=== PATIENT | female | born 1940 | race Caucasian/White ===

== ENCOUNTER 2022-11-12 09:45 | Emergency (ER) | payer MEDICARE, MEDICAID ==
[~2022-11-12] VITALS: Ht 165.1 cm; Wt 61.7 kg
[2022-11-12] MEDS ORDERED: KEFLEX 500 MG E2 CAP PO (09:55)
[2022-11-12 10:23] LABS: BILIRUBIN Negative (Negative); BLOOD Negative (Negative); CLARITY Clear (Clear); COLOR Yellow (Yellow); GLUCOSE Negative (Negative); KETONE Negative (Negative); LEUKO ESTERASE 1+ (Negative); NITRITE Negative (Negative); PH 5.5 (4.5-8.0); UROBILINOGEN 0.2 E.U./dl (0.0-1.0)
[2022-11-12 10:37] LABS: MUCOUS TRACE
[2022-11-12 10:51] LABS: BASO % 0.4 % (0.0-1.0); EOS # 0.1 10*3/uL (0.0-0.4); EOS % 1.4 % (1.0-4.0); HEMATOCRIT 41.5 % (37.0-47.0); LYMPH # 1.8 10*3/uL (1.3-4.4); LYMPH % 36.4 % (27.0-41.0); MEAN CELL VOLUME 89.4 fl (81.0-99.0); MEAN CORPUSCULAR HGB 27.8 pg (27.0-31.0); MEAN CORPUSCULAR HGB CONC 31.1 g/dl (33.0-37.0); MEAN PLATELET VOLUME 9.4 fl (9.6-12.3); MONO # 0.4 10*3/uL (0.1-1.0); MONO % 8.9 % (3.0-9.0); NEUT # 2.5 10*3/uL (2.3-7.9); NEUT % 52.7 % (47.0-73.0); PLATELET COUNT AUTOMATED 176 10*3/uL (130-400); RED BLOOD COUNT 4.64 10*6/uL (4.10-5.10); RED CELL DISTRI WIDTH 12.9 % (0-14.5); WHITE BLOOD COUNT 4.8 10*3/uL (4.8-10.8)
[2022-11-12 11:04] LABS: ACT PARTIAL THROMBO TIME 26.2 SECONDS (20.0-32.1)
[2022-11-12 11:09] LABS: ALKALINE PHOSPHATASE 128 U/L (46-116); BUN 20 mg/dl (9-23); CHLORIDE 109 mmol/L (98-107); LIPASE 37 U/L (12-53); POTASSIUM 4.2 mmol/L (3.4-5.1); SGPT/ALT 10 U/L (10-49); TOTAL PROTEIN 7.6 gm/dL (6.0-8.0)
[2022-11-12] MEDS ORDERED: CIPROFLOXACIN250 MG PO (11:47)
== END 2022-11-12 11:56 | disposition home or self-care (01) ==
LOC: ED 09:45
PROVIDERS: Emergency Medicine
DX: N39.0 Urinary tract infection, site not specified (principal)

== ENCOUNTER → 2022-11-24 | Outpatient (CLI) | payer MEDICARE, MEDICAID ==
[~2022-11-24] MED LIST: CIPROFLOXACIN250 MG PO; KEFLEX 500 MG E2 CAP PO
== END | disposition home or self-care (01) ==
LOC: MRI 01:07
PROVIDERS: ATTEND Internal Medicine
DX: I67.82 Cerebral ischemia (principal); H53.2 Diplopia

== ENCOUNTER → 2022-12-14 | Outpatient (CLI) | payer MEDICARE, MEDICAID | END | disposition home or self-care (01) | LOC: CARD 01:08 | PROVIDERS: ATTEND Internal Medicine | DX: I34.0 Nonrheumatic mitral (valve) insufficiency (principal) ==

== ENCOUNTER → 2022-12-17 | Outpatient (CLI) | payer MEDICARE, MEDICAID | END | disposition home or self-care (01) | LOC: US 01:07 | PROVIDERS: ATTEND Internal Medicine | DX: I65.23 Occlusion and stenosis of bilateral carotid arteries (principal); N94.89 Other specified conditions associated with female genital organs and menstrual cycle; H53.2 Diplopia; R42 Dizziness and giddiness; R74.8 Abnormal levels of other serum enzymes ==

== ENCOUNTER 2023-10-31 10:31 | Emergency (ER) | payer MEDICARE, MEDICAID ==
[~2023-10-31] VITALS: Ht 165.1 cm; Wt 61.2 kg
[2023-10-31 11:18] LABS: BASO % 0.4 % (0.0-1.0); EOS # 0.1 10*3/uL (0.0-0.4); EOS % 1.1 % (1.0-4.0); HEMATOCRIT 40.8 % (37.0-47.0); LYMPH # 1.8 10*3/uL (1.3-4.4); LYMPH % 33.3 % (27.0-41.0); MEAN CELL VOLUME 90.5 fl (81.0-99.0); MEAN CORPUSCULAR HGB 28.4 pg (27.0-31.0); MEAN CORPUSCULAR HGB CONC 31.4 g/dl (33.0-37.0); MEAN PLATELET VOLUME 9.8 fl (9.6-12.3); MONO # 0.6 10*3/uL (0.1-1.0); MONO % 10.3 % (3.0-9.0); NEUT % 54.5 % (47.0-73.0); PLATELET COUNT AUTOMATED 170 10*3/uL (130-400); RED BLOOD COUNT 4.51 10*6/uL (4.10-5.10); WHITE BLOOD COUNT 5.4 10*3/uL (4.8-10.8)
[2023-10-31 11:31] LABS: ACT PARTIAL THROMBO TIME 25.1 SECONDS (20.0-32.1)
[2023-10-31 11:38] LABS: BILIRUBIN Negative (Negative); BLOOD Negative (Negative); CLARITY Clear (Clear); COLOR Yellow (Yellow); GLUCOSE Negative (Negative); KETONE Negative (Negative); LEUKO ESTERASE 1+ (Negative); NITRITE Negative (Negative); PH 5.5 (4.5-8.0); SPECIFIC GRAVITY 1.015 (1.001-1.030); UROBILINOGEN 0.2 E.U./dl (0.0-1.0)
[2023-10-31 11:48] LABS: BACTERIA TRACE; EPITHELIAL CELLS 0-2; MUCOUS TRACE; RBC 0-2 rbc/hpf (0-2)
[2023-10-31] MEDS ORDERED: SODIUM CHLORIDE 0.9% 1,000 ML IV ONE (11:50)
[2023-10-31] MEDS ORDERED: Meclizine Hydrochloride 25 MG TAB PO ONE (13:45)
[2023-10-31] MEDS ORDERED: DRAMAMINE25 M4 PO (14:23)
== END 2023-10-31 14:44 | disposition home or self-care (01) ==
LOC: ED 10:31
PROVIDERS: Internal Medicine
DX: H81.10 Benign paroxysmal vertigo, unspecified ear (principal); R11.2 Nausea with vomiting, unspecified; Z90.49 Acquired absence of other specified parts of digestive tract

== ENCOUNTER 2023-12-14 16:28 | Emergency (ER) | payer MEDICARE, MEDICAID ==
[~2023-12-14] VITALS: Ht 165.1 cm; Wt 63.5 kg
[~2023-12-14 16:28] MED LIST changes: +DRAMAMINE25 M4 PO
[2023-12-14] MEDS ORDERED: fentaNYL CITRATE 100 MCG/2 ML VIAL IV ONE (19:25)
[2023-12-14] MEDS ORDERED: HYDROCODONE-AC1 EAC1 PO (19:35)
[2023-12-14] MEDS ORDERED: Acetaminophen/Hydrocodone 5 MG/325 MG TABLET PO ONE (19:55)
== END 2023-12-14 20:06 | disposition home or self-care (01) ==
LOC: ED 16:28
DX: S32.028A Other fracture of second lumbar vertebra, initial encounter for closed fracture (principal); Z79.899 Other long term (current) drug therapy; X50.0XXA Overexertion from strenuous movement or load, initial encounter; Y93.89 Activity, other specified; Y92.098 Other place in other non-institutional residence as the place of occurrence of the external cause; Y99.8 Other external cause status

== ENCOUNTER 2023-12-26 02:53 | Emergency (ER) | payer MEDICARE, MEDICAID ==
[~2023-12-26] VITALS: Ht 165.1 cm; Wt 63.5 kg
[~2023-12-26 02:53] MED LIST changes: +HYDROCODONE-AC1 EAC1 PO
== END 2023-12-26 03:19 | disposition home or self-care (01) ==
LOC: ED 02:53
DX: M54.50 Low back pain, unspecified (principal); Z90.49 Acquired absence of other specified parts of digestive tract